=== PATIENT | female | born 1990 | race American Indian/Alaskan Native ===

== ENCOUNTER 2019-05-18 12:01 | Emergency (ER) | payer BC ==
[2019-05-18 12:18] VITALS: BP 135/91
--- NOTE | 2019-05-18 12:26 | Event Note ---
ED Screening Note Date of service: 05/18/19 Time: 12:26 ED Screening Note: 28 y/o female comes in for lab work to be drawn. This initial assessment/diagnostic orders/clinical plan/treatment(s) is/are subject to change based on patients health status, clinical progression and re- assessment by fellow clinical providers in the ED. Further treatment and workup at subsequent clinical providers discretion. Patient/guardian urged not to elope from the ED as their condition may be serious if not clinically assessed and managed. Initial orders include:
--- NOTE | 2019-05-18 13:16 | Emergency Department Report ---
Chief Complaint: Medical Clearance Stated Complaint: BLOOD DRAWN Time Seen by Provider: 05/18/19 13:10 - HPI History of Present Illness: 28 y/o female comes in for lab work to be drawn. - ROS Review of Systems: No complaints. - Exam Vital Signs: Vital Signs 05/18/19 12:16 Temperature 98.1 F Pulse Rate 95 H Respiratory 16 Rate Blood Pressure 135/91 [Right] O2 Sat by Pulse 98 Oximetry Physical Exam: A&O times 3 NAD MSE screening note: Focused history and physical exam performed. Due to findings the following was ordered: labs ordered. ED Disposition for MSE Clinical Impression: Encounter for medical screening examination Disposition: DC-01 TO HOME OR SELFCARE Is pt being admited?: No Does the pt Need Aspirin: No Condition: Stable Referrals: KENDRICK VALENCIA MD [Primary Care Provider] - 3-5 Days
== END 2019-05-18 13:30 | disposition home or self-care (01) ==
LOC: ED 12:01
DX: Z00.00 Encounter for general adult medical examination without abnormal findings (principal); Z91.018 Allergy to other foods
CPT/HCPCS: 36415; 86706; 86803; 87529; 99283

== ENCOUNTER 2019-08-16 04:07 | Emergency (ER) | payer BC ==
[2019-08-16 04:15] VITALS: BP 137/79
[2019-08-16] MEDS ORDERED: IPRATROPIUM/ALBUTEROL SULFATE 3 ML AMPUL.NEB IH STA (05:02)
--- NOTE | 2019-08-16 06:14 | Emergency Department Report ---
- General Chief Complaint: Upper Respiratory Infection Stated Complaint: HEADACHE COUGH CHILLS Time Seen by Provider: 08/16/19 04:49 Source: patient Mode of arrival: Ambulatory Limitations: No Limitations - History of Present Illness MD Complaint: cough, sore throat, rhinorrhea, nasal congestion -: Gradual, days(s) (2) Severity: mild Consistency: constant Improves With: nothing Worsens With: nothing Associated Symptoms: chills, myalgias, rhinorrhea, cough. denies: abdominal pain, nausea, weight loss, epistaxis, hoarseness, ear pain - Related Data Previous Rx's Medication Instructions Recorded Last Taken Type Ciprofloxacin HCl [Ciprofloxacin 500 mg PO Q12H #14 tab 10/27/18 Unknown Rx TAB] Ondansetron [Zofran Odt] 4 mg PO Q8HR PRN #14 tab.rapdis 10/27/18 Unknown Rx Fluticasone [Flonase] 1 spray NS BID #1 bottle 02/11/19 Unknown Rx Guaifenesin/Pseudoephedrne HCl 1 tab PO BID #24 tab 02/11/19 Unknown Rx [Mucinex D ER 1,200-120 mg Tab] Ibuprofen 800 mg PO TID PRN #30 tablet 02/11/19 Unknown Rx ALBUTEROL Inhaler (OR & NICU) 1 puff IH Q4-6H PRN #1 inha 08/16/19 Unknown Rx [ProAir HFA Inhaler] guaiFENesin/CODEINE [Robitussin AC] 5 ml PO Q6H PRN #120 ml 08/16/19 Unknown Rx predniSONE [Deltasone] 20 mg PO QDAY #5 tab 08/16/19 Unknown Rx Allergies Allergy/AdvReac Type Severity Reaction Status Date / Time blueberries Allergy Hives Uncoded 10/26/18 23:07 ED Review of Systems ROS: Stated complaint: HEADACHE COUGH CHILLS Other details as noted in HPI Comment: All other systems reviewed and negative ED Past Medical Hx - Past Medical History Previous Medical History?: Yes Hx Asthma: Yes - Surgical History Past Surgical History?: Yes Hx Cholecystectomy: Yes Additional Surgical History: tubal ligation - Social History Smoking Status: Current Every Day Smoker Substance Use Type: Alcohol - Medications Home Medications: Home Medications Medication Instructions Recorded Confirmed Last Taken Type Ciprofloxacin HCl [Ciprofloxacin 500 mg PO Q12H #14 tab 12/12/18 Unknown Rx TAB] Ondansetron [Zofran Odt] 4 mg PO Q8HR PRN #14 tab.rapdis 10/27/18 Unknown Rx Fluticasone [Flonase] 1 spray NS BID #1 bottle 02/11/19 Unknown Rx Guaifenesin/Pseudoephedrne HCl 1 tab PO BID #24 tab 02/11/19 Unknown Rx [Mucinex D ER 1,200-120 mg Tab] Ibuprofen 800 mg PO TID PRN #30 tablet 02/11/19 Unknown Rx ALBUTEROL Inhaler (OR & NICU) 1 puff IH Q4-6H PRN #1 inha 08/16/19 Unknown Rx [ProAir HFA Inhaler] guaiFENesin/CODEINE [Robitussin AC] 5 ml PO Q6H PRN #120 ml 08/16/19 Unknown Rx predniSONE [Deltasone] 20 mg PO QDAY #5 tab 08/16/19 Unknown Rx ED Physical Exam - General Limitations: No Limitations General appearance: alert, in no apparent distress - Head Head exam: Present: atraumatic, normocephalic - Eye Eye exam: Present: normal appearance, PERRL, EOMI - ENT ENT exam: Present: mucous membranes moist, TM's normal bilaterally, other (some nasal congestion bilaterally) - Neck Neck exam: Present: normal inspection - Respiratory Respiratory exam: Present: normal lung sounds bilaterally. Absent: respiratory distress, wheezes, rales, chest wall tenderness, accessory muscle use - Cardiovascular Cardiovascular Exam: Present: regular rate, normal rhythm. Absent: systolic murmur, diastolic murmur, rubs, gallop - GI/Abdominal GI/Abdominal exam: Present: soft, normal bowel sounds - Extremities Exam Extremities exam: Present: normal inspection - Back Exam Back exam: Present: normal inspection. Absent: CVA tenderness (R), CVA tenderness (L) - Neurological Exam Neurological exam: Present: alert, oriented X3, CN II-XII intact - Psychiatric Psychiatric exam: Present: normal affect, normal mood - Skin Skin exam: Present: warm, dry, intact, normal color. Absent: rash ED Course Vital Signs 08/16/19 04:14 Temperature 97.9 F Pulse Rate 77 Respiratory 18 Rate Blood Pressure 137/79 [Right] O2 Sat by Pulse 97 Oximetry Critical care attestation.: If time is entered above; I have spent that time in minutes in the direct care of this critically ill patient, excluding procedure time. ED Disposition Clinical Impression: Cough, Viral syndrome Disposition: DC-01 TO HOME OR SELFCARE Is pt being admited?: No Does the pt Need Aspirin: No Condition: Stable Instructions: Viral Syndrome (ED), Cold Symptoms (ED) Referrals: [facility] [Provider Group] - 3-5 Days
== END 2019-08-16 06:25 | disposition home or self-care (01) ==
LOC: ED 04:07
DX: B34.9 Viral infection, unspecified (principal); J45.909 Unspecified asthma, uncomplicated; F17.200 Nicotine dependence, unspecified, uncomplicated; Z90.49 Acquired absence of other specified parts of digestive tract; Z98.51 Tubal ligation status; Z91.018 Allergy to other foods; Z79.1 Long term (current) use of non-steroidal anti-inflammatories (NSAID); Z79.899 Other long term (current) drug therapy
CPT/HCPCS: 94640

== ENCOUNTER 2021-06-09 07:39 | Emergency (ER) | payer BC ==
[2021-06-09] MEDS ORDERED: MAGNESIUM SULFATE 2 GM/50 ML BAG IV ONE (08:20)
[2021-06-09] MEDS ORDERED: IPRATROPIUM 0.02% NEBU 2.5 ML IH ONE ×3 (08:20→10:33)
[2021-06-09] MEDS ORDERED: methylPREDNISolone Sod Succinate 125 MG/2 ML INJ IV ONE (08:20)
[2021-06-09] MEDS ORDERED: ALBUTEROL 2.5 MG/3 ML NEBU IH ONE ×2 (08:20→09:56)
[2021-06-09] MEDS ORDERED: ACETAMINOPHEN 325 MG TAB PO ONE (08:21)
--- NOTE | 2021-06-09 08:22 | Emergency Department Report ---
<HIWOT SOTOMAYOR - Last Filed: 06/09/21 15:02> ED Asthma HPI - General Chief Complaint: Dyspnea/Respdistress Stated Complaint: DIFFICULTY BREATING/ASTHMA/CP Time Seen by Provider: 06/09/21 07:58 - Related Data Previous Rx's Medication Instructions Recorded Last Taken Type Albuterol Mdi (or & Nicu Only) 1 puff IH Q4-6H PRN #1 inha 08/16/19 06/09/21 Rx [ProAir HFA Inhaler] ALBUTEROL NEB's [Proventil 0.083% 5 mg IH TID PRN #30 neb 06/09/21 Unknown Rx NEBS] Albuterol Mdi (or & Nicu Only) 2 puff IH QID PRN #1 inhalation 06/09/21 Unknown Rx [ProAir HFA Inhaler] Amoxicillin [Amoxicillin TAB] 875 mg PO BID #14 tablet 06/09/21 Unknown Rx Prednisone [predniSONE 10 mg 10 mg PO .TAPER #1 tab.ds.pk 06/09/21 Unknown Rx (6-Day Pack, 21 Tabs)] Allergies Allergy/AdvReac Type Severity Reaction Status Date / Time blueberries Allergy Hives Uncoded 06/09/21 07:47 ED Past Medical Hx - Medications Home Medications: Home Medications Medication Instructions Recorded Confirmed Last Taken Type Albuterol Mdi (or & Nicu Only) 1 puff IH Q4-6H PRN #1 inha 08/16/19 06/09/21 Rx [ProAir HFA Inhaler] ALBUTEROL NEB's [Proventil 0.083% 5 mg IH TID PRN #30 neb 06/09/21 Unknown Rx NEBS] Albuterol Mdi (or & Nicu Only) 2 puff IH QID PRN #1 inhalation 06/09/21 Unknown Rx [ProAir HFA Inhaler] Amoxicillin [Amoxicillin TAB] 875 mg PO BID #14 tablet 06/09/21 Unknown Rx Prednisone [predniSONE 10 mg 10 mg PO .TAPER #1 tab.ds.pk 06/09/21 Unknown Rx (6-Day Pack, 21 Tabs)] ED Course - Reevaluation(s) Reevaluation #1: 06/09/21 13:09 Patient stated that she is feeling much better now. No difficulty breathing. Patient right now is 101 BEAT/ minutes. Oxygen saturation is 100%. ED Medical Decision Making - Lab Data Result diagrams: 06/09/21 10:07 06/09/21 10:07 - Medical Decision Making Patient is 30 years old female with history of asthma. Patient presented to the ER complaining of shortness of breath difficulty breathing since last night. Patient found to be severely tachypneic and hyperventilating. Patient maintaining her oxygen saturation 100%. Patient is very anxious. Patient stated that she recently drove from [place] to [place]. Patient received Xopenex, Atrovent, Solu-Medrol and magnesium sulfate. CTA chest is negative for PE or any other pathologies. Patient received Ativan 2 mg IV and patient symptoms improved significantly, heart rate went down from 160 to 98. Patient advised to use her albuterol as needed. Patient given prescription for prednisone and amoxicillin. Patient advised to return to the ER if she develop any new symptoms. Critical Care Time: Yes Critical care time in (mins) excluding proc time.: 30 ED Disposition Clinical Impression: Acute chest pain, Shortness of breath, Acute asthma exacerbation, Panic attack, Acute bronchitis Disposition: - TO HOME OR SELFCARE Is pt being admited?: No Condition: Stable Instructions: Asthma, Adult, Shortness of Breath, Adult, [id number], Acute Bronchitis, Adult, Chest Pain (ED), Acute Bronchitis (ED) Prescriptions: Amoxicillin [Amoxicillin TAB] 875 mg PO BID #14 tablet Prednisone [predniSONE 10 mg (6-Day Pack, 21 Tabs)] 10 mg PO .TAPER #1 tab.ds.pk Albuterol Mdi (or & Nicu Only) [ProAir HFA Inhaler] 2 puff IH QID PRN #1 inhalation PRN Reason: Shortness Of Breath ALBUTEROL NEB's [Proventil 0.083% NEBS] 5 mg IH TID PRN #30 neb PRN Reason: Wheezing Referrals: PRIMARY CARE, [Primary Care Provider] - 3-5 Days Forms: Work/School Release Form(ED) <DANICA GARVEY - Last Filed: 06/09/21 18:06> ED Asthma HPI - General Source: patient Mode of arrival: Ambulatory Limitations: No Limitations - History of Present Illness Initial Comments: 30-year-old female with known past medical history of asthma presents to the ER today with complaints of shortness of breath. Patient states that her symptoms started yesterday. She states that started with a dry cough, sore throat, and since then she has had wheezing, right-sided chest discomfort, and tightness to her upper back. She denies any rhinorrhea or nasal congestion, fever or chills. She states that she has been using her albuterol MDI every 1-2 hours without much relief. She states that she has a nebulizer machine but does not currently have any medications for it. She states that the last time she had any issues with her asthma was over a year ago. She states that the last time she was hospitalized for asthma was when she was a young child. She denies any ill contacts. She admits that she recently travelled 13hrs to [place]. She does not smoke. Complaint: "asthma attack", shortness of breath, wheezing, other ED Review of Systems ROS: Stated complaint: DIFFICULTY BREATING/ASTHMA/CP Other details as noted in HPI Comment: All other systems reviewed and negative Constitutional: denies: chills, fever ENT: throat pain. denies: ear pain, dental pain, hearing loss, epistaxis, congestion Respiratory: cough, shortness of breath, wheezing. denies: SOB with exertion, SOB at rest, stridor Cardiovascular: chest pain (right sided chest discomfort) Gastrointestinal: denies: abdominal pain, nausea, vomiting, diarrhea, cons tipation, hematemesis, hematochezia Genitourinary: denies: urgency, dysuria, frequency, hematuria, discharge, abnormal menses, dyspareunia Musculoskeletal: back pain. denies: joint swelling, arthralgia, myalgia Skin: denies: rash, lesions, change in color, change in hair/nails, pruritus Neurological: denies: headache, weakness, numbness, paresthesias, confusion, abnormal gait, vertigo Psychiatric: denies: anxiety, depression, auditory hallucinations, visual hallucinations, homicidal thoughts, suicidal thoughts Hematological/Lymphatic: denies: easy bleeding, easy bruising, swollen glands ED Past Medical Hx - Past Medical History Hx Asthma: Yes - Surgical History Hx Cholecystectomy: Yes Additional Surgical History: tubal ligation - Social History Smoking Status: Current Every Day Smoker Substance Use Type: Alcohol ED Physical Exam - General Limitations: No Limitations General appearance: alert, in distress (mild respiratory distress) - Head Head exam: Present: atraumatic, normocephalic, normal inspection - Eye Eye exam: Present: normal appearance, PERRL, EOMI Pupils: Present: normal accommodation - ENT ENT exam: Present: normal exam, mucous membranes moist, TM's normal bilaterally - Neck Neck exam: Present: normal inspection, full ROM. Absent: meningismus - Respiratory Respiratory exam: Present: respiratory distress (mild ), wheezes (Diffuse expiratory wheezing noted in the right lung pickett), decreased breath sounds (Left lung field). Absent: rales, rhonchi, stridor - Cardiovascular Cardiovascular Exam: Present: regular rate, normal rhythm, normal heart sounds - Extremities Exam Extremities exam: Present: normal inspection. Absent: pedal edema, calf tenderness - Neurological Exam Neurological exam: Present: alert, oriented X3, CN II-XII intact, normal gait - Psychiatric Psychiatric exam: Present: normal affect, normal mood - Skin Skin exam: Present: intact ED Course Vital Signs 06/09/21 06/09/21 06/09/21 07:50 08:30 10:00 Temperature 98.9 F Pulse Rate 95 H 113 H Pulse Rate [ 108 H Bilateral] Respiratory 24 34 H Rate Respiratory 22 Rate [Bilateral ] Blood Pressure 129/69 Blood Pressure 134/80 [Right] O2 Sat by Pulse 98 100 Oximetry 06/09/21 06/09/21 06/09/21 10:15 10:25 10:37 Temperature Pulse Rate 120 H 148 H Pulse Rate [ Bilateral] Respiratory 32 H 46 H Rate Respiratory Rate [Bilateral ] Blood Pressure Blood Pressure 149/89 [Right] O2 Sat by Pulse 100 100 97 Oximetry 06/09/21 06/09/21 06/09/21 10:46 11:00 11:15 Temperature Pulse Rate 125 H 117 H 105 H Pulse Rate [ Bilateral] Respiratory Rate Respiratory Rate [Bilateral ] Blood Pressure 131/113 89/67 116/75 Blood Pressure [Right] O2 Sat by Pulse 100 100 100 Oximetry 06/09/21 06/09/21 06/09/21 11:30 11:46 12:02 Temperature Pulse Rate 101 H 111 H 115 H Pulse Rate [ Bilateral] Respiratory Rate Respiratory Rate [Bilateral ] Blood Pressure 116/75 112/76 112/76 Blood Pressure [Right] O2 Sat by Pulse 100 98 Oximetry 06/09/21 06/09/21 06/09/21 12:16 12:30 12:46 Temperature Pulse Rate 100 H 96 H 112 H Pulse Rate [ Bilateral] Respiratory 15 16 12 Rate Respiratory Rate [Bilateral ] Blood Pressure 119/82 117/75 111/78 Blood Pressure [Right] O2 Sat by Pulse 95 96 97 Oximetry 06/09/21 06/09/21 06/09/21 13:00 13:16 13:30 Temperature Pulse Rate 100 H 94 H 94 H Pulse Rate [ Bilateral] Respiratory 20 16 19 Rate Respiratory Rate [Bilateral ] Blood Pressure 129/88 135/86 134/87 Blood Pressure [Right] O2 Sat by Pulse 100 98 98 Oximetry 06/09/21 06/09/21 06/09/21 13:46 14:00 14:16 Temperature Pulse Rate 89 90 84 Pulse Rate [ Bilateral] Respiratory 10 L 21 21 Rate Respiratory Rate [Bilateral ] Blood Pressure 132/83 135/83 151/91 Blood Pressure [Right] O2 Sat by Pulse 100 100 100 Oximetry 06/09/21 14:55 Temperature Pulse Rate Pulse Rate [ Bilateral] Respiratory Rate Respiratory Rate [Bilateral ] Blood Pressure 144/121 Blood Pressure [Right] O2 Sat by Pulse Oximetry ED Medical Decision Making - Lab Data Result diagrams: 06/09/21 10:07 06/09/21 10:07 - EKG Data Rate: tachycardia (160) - Radiology Data Radiology results: report reviewed Patient: PARKER MATHEW MR#: [id number] : 1990 Acct:[id number] Age/Sex: 30 / F ADM Date: 06/09/21 Loc: ED Attending Dr: Ordering Physician: DANICA GARVEY Date of Service: 06/09/21 Procedure(s): XR chest routine 2V Accession Number(s): [id number] cc: DANICA GARVEY Fluoro Time In Minutes: XR chest routine 2V INDICATION / CLINICAL INFORMATION: SOB/wheezing COMPARISON: None available. FINDINGS: SUPPORT DEVICES: None. HEART / MEDIASTINUM: No significant abnormality. LUNGS / PLEURA: Lungs are clear. Costophrenic sulci are sharp. No pneumothorax. ADDITIONAL FINDINGS: Nipple piercings are present. No significant additional findings. IMPRESSION: 1. No acute findings. Signer Name: Herbert Matson MD Signed: 06/09/2021 9:46 AM Workstation Name: [id number] Transcribed By: ALLEN Dictated By: Herbert Matson MD Electronically Authenticated By: Herbert Matson MD Signed Date/Time: 06/09/21945 DD/ 4 TD/TT: - Medical Decision Making 10:01 -- Patient appears anxious and still in mild respiratory distress distress. She states first neb tx help "a little bit". She still having this right-sided chest pain and having difficulty breathing. Repeat lung exam shows mild to moderate wheezing in right lung pickett and decreased breath sounds in the left lung pickett. Vital signs currently shows that 139/80, RR 38, HR 107 and pulse ox 100% on RA. Chest x-ray so far negative for anything acute. Second nebulizer treatment with Atrovent and albuterol ordered. Patient symptoms could be related to her asthma, but I am also considering PE high in my differential. Pt admits that she recently travelled 13hr to and from [place] recently and so additional work-up ordered to include labs including troponin, EKG and D-dimer. 1025: library circulation technician came out of room stating patient does not looking well and her HR is up in 150s-160s. When I re-eval patient, she is in mod respiratory distress, anxious and hyperventilating and complains of severe right-sided chest pain. Patient encouraged to breathing through her nose and out through her mouth. Heart rate of the time of my evaluation on awake overnight monitor was 160s, however pulse ox was 100% on room air. Stat EKG shows that she is sinus tach at 160. Morphine 4 mg IV administered to help with pain control. library circulation technician at bedside and was obtaining ABG. She was placed on 5 L O2. Case discussed with Dr. Gonzalez Martinez, he also came and evaluated patient. Given patient state of respiratory distress patient transferred over to the main side. Case turned over to Dr. Gonzalez Martinez. Critical care attestation.: If time is entered above; I have spent that time in minutes in the direct care of this critically ill patient, excluding procedure time.
--- NOTE | 2021-06-09 09:50 | XRay Report ---
XR chest routine 2V INDICATION / CLINICAL INFORMATION: SOB/wheezing COMPARISON: None available. FINDINGS: SUPPORT DEVICES: None. HEART / MEDIASTINUM: No significant abnormality. LUNGS / PLEURA: Lungs are clear. Costophrenic sulci are sharp. No pneumothorax. ADDITIONAL FINDINGS: Nipple piercings are present. No significant additional findings. IMPRESSION: 1. No acute findings. Signer Name: Herbert Matson MD Signed: 06/09/2021 9:46 AM Workstation Name: [id number]
[2021-06-09] MEDS ORDERED: MORPHINE 4 MG/1 ML INJ IV ONE (10:00)
[2021-06-09] MEDS ORDERED: ONDANSETRON 4 MG/2 ML INJ IV ONE (10:00)
[2021-06-09 10:29] LABS: Basophils % (Auto) 0.2 % (0.0-1.8); Eosinophils # (Auto) 0.1 K/mm3 (0.0-0.4); Eosinophils % (Auto) 0.7 % (0.0-4.3); Hematocrit 27.3 % (30.3-42.9); Hemoglobin 8.5 gm/dl (10.1-14.3); Lymphocytes # (Auto) 1.8 K/mm3 (1.2-5.4); Mean Corpuscular HGB Conc 31 % (30-34); Monocytes # (Auto) 0.5 K/mm3 (0.0-0.8); Monocytes % (Auto) 4.1 % (0.0-7.3); Platelet Count 322 K/mm3 (140-440); Red Blood Count 3.92 M/mm3 (3.65-5.03); Red Cell Distribution Width 18.5 % (13.2-15.2)
[2021-06-09] MEDS ORDERED: LORazepam 2 MG/ML VIAL IV ONE ×2 (10:33→10:40)
[2021-06-09] MEDS ORDERED: LEVALBUTEROL 0.63 MG/3 ML NEBU IH ONE (10:36)
[2021-06-09 10:38] LABS: Mean Corpuscular Volume 70 fl (79-97)
[2021-06-09 10:50] LABS: Alanine Aminotransferase 11 units/L (7-56); Albumin 4.3 g/dL (3.9-5); Blood Urea Nitrogen 11 mg/dL (7-17); Calcium 9.2 mg/dL (8.4-10.2); Hemolysis Index 4
[2021-06-09 11:00] LABS: BUN/Creatinine Ratio 18
[2021-06-09 11:09] LABS: INR 0.97 (0.87-1.13); Partial Thromboplastin Time 32.8 Sec. (24.2-36.6)
--- NOTE | 2021-06-09 12:29 | Cat Scan Report ---
CTA CHEST WITH CONTRAST INDICATION / CLINICAL INFORMATION: CHEST PAIN WITH SOB OMNIPAQUE 350 100ML. TECHNIQUE: Axial CT images were obtained through the chest after injection of IV contrast. 3 plane OH P and/or 3D reconstructions were produced. All CT scans at this location are performed using CT dose reduction for ALARA by means of automated exposure control. COMPARISON: None available. FINDINGS: The central pulmonary arteries are patent without filling defect. The more peripheral pulmonary arter ies are not well seen due to contrast mixing in significant motion throughout. No focal consolidation is identified. No pleural effusion. No mediastinal or hilar adenopathy. Visualized portions of the u pper abdomen appear normal IMPRESSION: 1. No central PTE is identified. There is significant motion artifact and visualization of the more p eripheral pulmonary arteries is significantly limited. Peripheral PTE is not excluded as a peripheral pulmonary arteries are not well evaluated. Signer Name: William Rios MD Signed: 06/09/2021 12:24 PM Workstation Name: [id number]
[2021-06-09 15:20] VITALS: BP 144/121
--- NOTE | 2021-06-10 11:50 | Electrocardiograph Report ---
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
== END 2021-06-09 15:57 | disposition home or self-care (01) ==
LOC: ED 07:39
DX: J45.901 Unspecified asthma with (acute) exacerbation (principal); F41.0 Panic disorder [episodic paroxysmal anxiety]; J20.9 Acute bronchitis, unspecified; R07.9 Chest pain, unspecified; F17.200 Nicotine dependence, unspecified, uncomplicated
CPT/HCPCS: 36415; 71046; 71275; 80053; 82805; 83880; 84484; 85025; 85379; 85610; 85730; 93005; 94640; 96365; 96375; 99291; J2060; J2270; J2405; J2930; J3475; Q9967; 94644

== ENCOUNTER 2021-08-16 12:12 | Outpatient (CLI) | payer BC ==
[2021-08-16 14:04] LABS: Hepatitis C Virus Antibody Non-Reactive (NonReactive)
--- NOTE | 2021-08-16 14:55 | Ultrasound Report ---
ULTRASOUND PELVIS INDICATION / CLINICAL INFORMATION: MENNORHAGIA. TECHNIQUE: Transvaginal. Duplex Color Doppler used: Yes. COMPARISON: None available FINDINGS: UTERUS: - Appearance: No significant abnormality. - Size (cm): 10.4 x 5.3 x 7.3 - Endometrial Complex (if present): No significant abnormality.. Thickness in cm (if measured) = 1.5 - Mass or cyst: None. - Additional findings: Incidentally noted nabothian cysts in the cervix. RIGHT ADNEXA: No significant ovarian cyst or mass. Normal color Doppler blood flow. LEFT ADNEXA: No significant ovarian cyst or mass. Normal color Doppler blood flow. URINARY BLADDER: No significant abnormality. FREE FLUID: None. ADDITIONAL FINDINGS: None. IMPRESSION: 1. No significant abnormality. Signer Name: Johnny Mathews DO Signed: 08/16/2021 2:51 PM Workstation Name: [id number]
[2021-09-11 13:11] LABS: HIV-1 Antibody Differentiation SEE SCANNED RESULTS; HIV-2 Antibody Differentiation SEE SCANNED RESULTS
== END 2021-08-16 12:13 | disposition home or self-care (01) ==
LOC: VAS 12:12
PROVIDERS: ATTEND Obstetrics & Gynecology
DX: N92.0 Excessive and frequent menstruation with regular cycle (principal)
CPT/HCPCS: 36415; 76830; 86592; 86689; 86706; 86803; 87529

== ENCOUNTER 2021-11-19 12:14 | Emergency (ER) | payer BC ==
--- NOTE | 2021-11-19 12:16 | Emergency Department Report ---
- General Stated Complaint: REMOVAL OF JARROD Time Seen by Provider: 11/19/21 12:14 - History of Present Illness Initial Comments: Patient presented with staple removal. She was seen here about 8 or 9 days ago with a scalp wound. This was closed. She states that she still has some mild soreness. There is some itching around this area. She has no other complaint. There has been no fever. She is just here for staple removal. - Related Data Previous Rx's Medication Instructions Recorded Last Taken Type Albuterol Mdi (or & Nicu Only) 1 puff IH Q4-6H PRN #1 inha 08/16/19 06/09/21 Rx [ProAir HFA Inhaler] ALBUTEROL NEB's [Proventil 0.083% 5 mg IH TID PRN #30 neb 06/09/21 Unknown Rx NEBS] Albuterol Mdi (or & Nicu Only) 2 puff IH QID PRN #1 inhalation 06/09/21 Unknown Rx [ProAir HFA Inhaler] Amoxicillin [Amoxicillin TAB] 875 mg PO BID #14 tablet 06/09/21 Unknown Rx Prednisone [predniSONE 10 mg 10 mg PO .TAPER #1 tab.ds.pk 06/09/21 Unknown Rx (6-Day Pack, 21 Tabs)] Allergies Allergy/AdvReac Type Severity Reaction Status Date / Time blueberries Allergy Hives Uncoded 06/09/21 07:47 ED Review of Systems ROS: Stated complaint: REMOVAL OF JARROD Other details as noted in HPI Constitutional: denies: fever Skin: as per HPI Neurological: headache (Mild) Hematological/Lymphatic: denies: easy bruising ED Past Medical Hx - Past Medical History Hx Asthma: Yes - Surgical History Hx Cholecystectomy: Yes Additional Surgical History: tubal ligation - Social History Smoking Status: Current Every Day Smoker Substance Use Type: Alcohol - Medications Home Medications: Home Medications Medication Instructions Recorded Confirmed Last Taken Type Albuterol Mdi (or & Nicu Only) 1 puff IH Q4-6H PRN #1 inha 08/16/19 06/09/21 Rx [ProAir HFA Inhaler] ALBUTEROL NEB's [Proventil 0.083% 5 mg IH TID PRN #30 neb 06/09/21 Unknown Rx NEBS] Albuterol Mdi (or & Nicu Only) 2 puff IH QID PRN #1 inhalation 06/09/21 Unknown Rx [ProAir HFA Inhaler] Amoxicillin [Amoxicillin TAB] 875 mg PO BID #14 tablet 06/09/21 Unknown Rx Prednisone [predniSONE 10 mg 10 mg PO .TAPER #1 tab.ds.pk 06/09/21 Unknown Rx (6-Day Pack, 21 Tabs)] ED Physical Exam - General Limitations: No Limitations, Other General appearance: alert, in no apparent distress - Head Head exam: Present: normocephalic, other (Healing laceration in the hairline on the left side of the forehead with jarrod in place) - Eye Eye exam: Present: normal appearance. Absent: scleral icterus - ENT ENT exam: Present: normal external ear exam - Neck Neck exam: Absent: meningismus - Respiratory Respiratory exam: Absent: respiratory distress - Cardiovascular Cardiovascular Exam: Absent: JVD - Neurological Exam Neurological exam: Present: alert, normal gait - Psychiatric Psychiatric exam: Present: normal affect, normal mood - Skin Skin exam: Present: warm, dry ED Course - Reevaluation(s) Reevaluation #1: 11/19/21 14:12 Jarrod were removed and the patient was discharged ED Medical Decision Making - Medical Decision Making Patient presented for staple removal. Patient was subsequently discharged. Jarrod were removed by the nursing staff. There is no evidence of wound infection. This is well-healed. I do not anticipate any complications. Critical Care Time: No Critical care attestation.: If time is entered above; I have spent that time in minutes in the direct care of this critically ill patient, excluding procedure time. ED Disposition Clinical Impression: Removal of staple Disposition: HOME / SELF CARE / HOMELESS Is pt being admited?: No Condition: Stable Instructions: Wound Closure Removal, Care After Additional Instructions: Keep the wound clean. Return for problems. Follow-up with your regular doctor.
== END 2021-11-19 12:18 | disposition home or self-care (01) ==
LOC: ED 12:14
DX: Z48.02 Encounter for removal of sutures (principal); J45.909 Unspecified asthma, uncomplicated; Z90.49 Acquired absence of other specified parts of digestive tract; Z98.51 Tubal ligation status; F17.200 Nicotine dependence, unspecified, uncomplicated; Z91.018 Allergy to other foods
CPT/HCPCS: 99282